=== PATIENT | female | born 1995 | race Caucasian/White ===

== ENCOUNTER 2017-02-24 00:27 | Emergency (ER) | payer OTHER ==
[2017-02-24] MEDS ORDERED: Ondansetron ODT TAB* 4 MG ONE (01:10)
[2017-02-24] MEDS ORDERED: Ondansetron ODT TAB* 4 MG PO ONE (01:11)
[2017-02-24] MEDS ORDERED: Al Hydrox/Mg Hydrox/Simet LIQ* 30 ML UDC PO ONE (01:16)
[2017-02-24] MEDS ORDERED: Lidocaine 2% VISCOUS* 15 ML UDC PO ONE (01:16)
--- NOTE | 2017-02-24 01:29 | ED ---
bar Shore Timothy, scribed for James Souza MD on 02/24/17 at 0117 . Abdominal Pain/Female - HPI Summary HPI Summary: Yanna Ray is a 21 yo female presenting to [facility] with nausea and 8/10 abd pain radiaitng into her mid-back since 2300 02/23/17. She states the pain also rises into her throat, and that it is like acid reflux but worse. She states she has not vomited, but has been dry heaving. Her MHx includes celiac disease, ovarian cysts, UTI's and tonsillectomy. - History of Current Complaint Stated Complaint: NAUSEA Time Seen by Provider: 02/24/17 01:13 Hx Obtained From: Patient Onset/Duration: Sudden Onset, Lasting Hours, Still Present Timing: Constant Severity Initially: Moderate Severity Currently: Moderate Pain Intensity: 8 Pain Scale Used: 0-10 Numeric Location: Epigastric Radiates: No Character: Burning Aggravating Factor(s): Nothing Associated Signs and Symptoms: Positive: Nausea Allergies/Adverse Reactions: Allergies Allergy/AdvReac Type Severity Reaction Status Date / Time Gluten Meal Allergy GI Upset Verified 05/31/15 11:40 Morphine Allergy Rash Verified 05/31/15 11:40 Neomycin Allergy Swelling Verified 05/31/15 11:40 PMH/Surg Hx/FS Hx/Imm Hx - Immunization History Date of Tetanus Vaccine: utd Date of Influenza Vaccine: utd Infectious Disease History: No Infectious Disease History: Denies: Traveled Outside the [place] in Last 30 Days - Family History Known Family History: Positive: Cardiac Disease, Hypertension, Diabetes - Social History Alcohol Use: Rare Hx Substance Use: No Substance Use Type: Reports: None Smoking Status (MU): Never Smoked Tobacco Review of Systems Constitutional: Negative Eyes: Negative ENT: Negative Cardiovascular: Negative Respiratory: Negative Positive: Abdominal Pain, Nausea. Negative: Vomiting Genitourinary: Negative Musculoskeletal: Negative Skin: Negative Neurological: Negative Psychological: Normal All Other Systems Reviewed And Are Negative: Yes Physical Exam Triage Information Reviewed: Yes Vital Signs On Initial Exam: Initial Vitals Temp Pulse Resp BP Pulse Ox 98.3 F 92 12 147/79 100 02/24/17 00:32 02/24/17 00:32 02/24/17 00:32 02/24/17 00:32 02/24/17 00:32 Vital Signs Reviewed: Yes Appearance: Positive: Well-Appearing, No Pain Distress Skin: Positive: Warm Head/Face: Positive: Normal Head/Face Inspection Eyes: Positive: SANDRA ENT: Positive: Hearing grossly normal Neck: Positive: Supple Respiratory/Lung Sounds: Positive: Clear to Auscultation, Breath Sounds Present Abdomen Description: Positive: Nontender, Soft Bowel Sounds: Positive: Present Musculoskeletal: Positive: Strength/ROM Intact Neurological: Positive: Alert, Oriented to Person Place, Time, Normal Gait Psychiatric: Positive: Affect/Mood Appropriate - [place] Coma Scale Coma Scale Total: 15 Diagnostics - Vital Signs Vital Signs Temp Pulse Resp BP Pulse Ox 02/24/17 00:32 98.3 F 92 12 147/79 100 - Laboratory Result Diagrams: 02/24/17 03:20 02/24/17 03:20 Lab Statement: Any lab studies that have been ordered have been reviewed, and results considered in the medical decision making process. Re-Evaluation - Re-Evaluation First Eval Change: Improved Abdominal Pain Fem Course/Dx - Course Course Of Treatment: Yanna Garcia is a 21 yo female presenting to [facility] with 8/10 abd pain rising through her throat "like acid reflux but worse" with nausea and dry-heaving but no vomiting. In the ED she was given Zofran to control her nausea, lidocaine as local anasthetic, and Maalox Plus as an antacid to coat her stomach. After clinical examination and review of her lab work, she will be discharged home with abdominal pain and appropriate instructions. - Diagnoses Provider Diagnoses: Abdominal pain Discharge - Discharge Plan Condition: Stable Disposition: HOME Patient Education Materials: Acute Abdominal Pain (ED), Diet for Ulcers and Gastritis (ED) Referrals: [facility] [Primary Care Provider] - 2 Days Additional Instructions: Please follow up with your primary care physician regarding your visit to the emergency department today. Return to the emergency department with any new or recurring symptoms. The documentation as recorded by the bar graves Timothy accurately reflects the service I personally performed and the decisions made by me, James Souza MD.
[2017-02-24 03:38] LABS: Add Diff/Slide Review? Slide Review Added; Comments Flag Yes; Hematocrit 40 % (35-47); Hemoglobin 13.2 g/dl (12.0-16.0); Mean Corpuscular HGB Conc 33 g/dl (31-36); Mean Corpuscular Hemoglobin 28 pg (27-31); Mean Corpuscular Volume 84 fL (80-97); Mean Platelet Volume 9 um3 (7.4-10.4); Red Blood Count 4.77 10^6/ul (4.0-5.4); Red Cell Distribution Width 13 % (10.5-15); White Blood Count 7.3 10^3/ul (3.5-10.8)
[2017-02-24 03:52] LABS: ALT 11 U/L (7-52); AST 13 U/L (13-39); Albumin 3.6 g/dL (3.2-5.2); Alkaline Phosphatase 69 U/L (34-104); Anion Gap 6 mmol/L (2-11); BUN/Creatinine Ratio 15.8 (8-20); Blood Urea Nitrogen 12 mg/dL (6-24); CO2 Carbon Dioxide 25 mmol/L (22-32); Calcium 9.2 mg/dL (8.6-10.3); Chloride 105 mmol/L (101-111); EGFR African American 122.4 (>60); EGFR Non-African American 95.2 (>60); Globulin 3.2 g/dL (2-4); Glucose 100 mg/dL (70-100); Lipase < 10 U/L (11.0-82.0); Potassium 4.4 mmol/L (3.5-5.0); Sodium 136 mmol/L (133-145); Total Protein 6.8 g/dL (6.4-8.9)
[2017-02-24 04:42] VITALS: BP 113/70
== END 2017-02-24 04:41 | disposition home or self-care (01) ==
LOC: ED 00:27
DX: R10.9 Unspecified abdominal pain (principal); R11.0 Nausea
CPT/HCPCS: 36415; 80053; 83605; 83690; 84702; 85025; 86140; 99283; A9270-GY

== ENCOUNTER 2017-02-24 13:47 | Emergency (ER) | payer OTHER ==
[2017-02-24] MEDS ORDERED: Pantoprazole IV* 40 MG IV ONE (14:55)
[2017-02-24] MEDS ORDERED: Ondansetron INJ* 2 MG/ML VIAL IV ONE (14:55)
[2017-02-24] MEDS ORDERED: NS 0.9% 1000 ML* 1,000 ML IV ONE (14:55)
--- NOTE | 2017-02-24 15:39 | RAD ---
INDICATION: ] Right upper quadrant pain COMPARISON: None TECHNIQUE: Longitudinal and transverse scans of the right upper quadrant were obtained. Doppler interrogation of the hepatic and portal venous system was performed. FINDINGS: Liver: There is hepatomegaly with hepatic steatosis. There are no masses . The liver measures 22.5 cm in cephalocaudal dimension. Vessels: There is normal hepatic and portal venous flow. Bile ducts: There is no evidence of intrahepatic or extrahepatic ductal dilatation. The common duct measures 0.3 cm. Gallbladder: There are small gallbladder polyps. The sonographic appearance of the gallbladder is otherwise normal. There is no evidence of cholelithiasis, thickening of the gallbladder wall, or pericholecystic fluid. Pancreas: The visualized pancreas appears normal Right kidney: The right kidney is normal in size and echogenicity. There are no masses or calculi. There is no evidence of hydronephrosis. The right kidney measures 11.3 x 4.3 x 5.1 cm. IVC and aorta: The aorta and superior vena cava appear normal. Fluid: There is no ascites. Other: None. IMPRESSION: GALLBLADDER POLYPS, OTHERWISE NEGATIVE.
--- NOTE | 2017-02-24 15:43 | RAD ---
Indication: Abdominal pain. Flat and upright views of the abdomen demonstrates no free air. No dilated loops of bowel are noted. No free air is identified. IMPRESSION: No free air or obstruction is noted.
[2017-02-24 16:11] LABS: Urine Bilirubin Negative (Negative); Urine Glucose Negative (Negative); Urine Nitrite Negative (Negative)
[2017-02-24 16:21] LABS: Hematocrit 39 % (35-47); Mean Corpuscular HGB Conc 33 g/dl (31-36); Mean Corpuscular Hemoglobin 28 pg (27-31); Mean Corpuscular Volume 85 fL (80-97); Mean Platelet Volume 9 um3 (7.4-10.4); Red Blood Count 4.62 10^6/ul (4.0-5.4); Red Cell Distribution Width 13 % (10.5-15); White Blood Count 8.5 10^3/ul (3.5-10.8)
[2017-02-24 16:33] LABS: ALT 11 U/L (7-52); Albumin 3.5 g/dL (3.2-5.2); Alkaline Phosphatase 67 U/L (34-104); Amylase 30 U/L (29-103); BUN/Creatinine Ratio 15.1 (8-20); Blood Urea Nitrogen 11 mg/dL (6-24); C Reactive Protein 19.76 mg/L (< 5.00); CO2 Carbon Dioxide 25 mmol/L (22-32); Calcium 9.1 mg/dL (8.6-10.3); Chloride 105 mmol/L (101-111); EGFR African American 128.2 (>60); EGFR Non-African American 99.7 (>60); Globulin 3.4 g/dL (2-4); Glucose 86 mg/dL (70-100); Lipase < 10 U/L (11.0-82.0); Sodium 136 mmol/L (133-145); Total Protein 6.9 g/dL (6.4-8.9)
[2017-02-24 16:36] LABS: AST 21 U/L (13-39); Anion Gap 6 mmol/L (2-11)
--- NOTE | 2017-02-24 17:57 | ED ---
Kraig Shore Alok, scribed for Benito Davidson MD on 02/24/17 at 1541 . GI/ HPI - HPI Summary HPI Summary: 21 y/o female presents to the ED with abdominal pain and nausea since 2300 last night. Pt last visited the ED last night following the pain, staying approximately from [id number], and was treated with a GI cocktail which did not improve symptoms. Pt was sent home and prompted to visit the ED again today after symptoms began to worsen. PMHx includes gastric ulcers and hypothyroid. PSHx includes tonsillectomy and knee surgery. Pt takes Neproxin once every three days. Pt denies tobacco use. - History of Current Complaint Chief Complaint: EDAbdPain Time Seen by Provider: 02/24/17 14:41 Stated Complaint: CHEST PAINS Hx Obtained From: Patient Onset/Duration: Started Hours Ago, Atraumatic, Still Present Timing: Constant Severity: Moderate Current Severity: Moderate Pain Intensity: 6 Location of Pain: RUQ, Epigastric Associated Signs and Symptoms: Positive: Nausea Aggravating Factor(s): Nothing Alleviating Factor(s): Nothing - Allergy/Home Medications Allergies/Adverse Reactions: Allergies Allergy/AdvReac Type Severity Reaction Status Date / Time Gluten Meal Allergy GI Upset Verified 05/31/15 11:40 Morphine Allergy Rash Verified 05/31/15 11:40 Neomycin Allergy Swelling Verified 05/31/15 11:40 PMH/Surg Hx/FS Hx/Imm Hx Endocrine/Hematology History: Reports: Hx Thyroid Disease GI History: Reports: Hx Ulcer - Surgical History Surgery Procedure, Year, and Place: Tonsillectomy - Immunization History Date of Tetanus Vaccine: utd Date of Influenza Vaccine: utd Infectious Disease History: No Infectious Disease History: Denies: Traveled Outside the [place] in Last 30 Days - Family History Known Family History: Positive: Cardiac Disease, Hypertension, Diabetes - Social History Occupation: Student Alcohol Use: Rare Hx Substance Use: No Substance Use Type: Reports: None Smoking Status (MU): Never Smoked Tobacco Review of Systems Negative: Fever Positive: Abdominal Pain, Nausea All Other Systems Reviewed And Are Negative: Yes Physical Exam - Summary Physical Exam Summary: VITAL SIGNS: Reviewed. GENERAL: ~Patient is a well developed and nourished female who is lying comfortable in the stretcher. ~Patient is not in any acute respiratory distress. HEAD AND FACE: Normocephalic EYES: PERRLA, EOMI x 2. EARS: Hearing grossly intact. MOUTH: Oropharynx within normal limits. NECK: Supple, trachea is midline, no adenopathy, no JVD, no carotid bruit. CHEST: Symmetric, no tenderness at palpation LUNGS: Clear to auscultation bilaterally. No wheezing or crackles. CVS: Regular rate and rhythm, S1 and S2 present, no murmurs or gallops appreciated. ABDOMEN: Epigastric and RUQ tenderness. EXTREMITIES: Full ROM in all major joints, no edema, no cyanosis or clubbing. NEURO: Alert and oriented x 3. No acute neurological deficits. Speech is normal and follows commands. SKIN: Dry and warm Triage Information Reviewed: Yes Vital Signs On Initial Exam: Initial Vitals Temp Pulse Resp BP Pulse Ox 98.0 F 75 16 166/66 100 02/24/17 13:50 02/24/17 13:50 02/24/17 13:50 02/24/17 13:50 02/24/17 13:50 Vital Signs Reviewed: Yes Diagnostics - Vital Signs Vital Signs Temp Pulse Resp BP Pulse Ox 02/24/17 14:54 98 F 75 16 166/66 100 02/24/17 13:50 98.0 F 75 16 166/66 100 - Laboratory Lab Results: Lab Results 02/24/17 02/24/17 02/24/17 Range/Units 15:50 15:50 15:50 WBC 8.5 (3.5-10.8) 10^3/ul RBC 4.62 (4.0-5.4) 10^6/ul Hgb 13.0 (12.0-16.0) g/dl Hct 39 (35-47) % MCV 85 (80-97) fL MCH 28 (27-31) pg MCHC 33 (31-36) g/dl RDW 13 (10.5-15) % Plt Count 288 (150-450) 10^3/ul MPV 9 (7.4-10.4) um3 Neut % (Auto) 54.9 (38-83) % Lymph % (Auto) 35.9 (25-47) % [place] % (Auto) 7.7 (1-9) % Eos % (Auto) 0.9 (0-6) % Baso % (Auto) 0.6 (0-2) % Absolute Neuts (auto) 4.7 (1.5-7.7) 10^3/ul Absolute Lymphs (auto) 3.1 (1.0-4.8) 10^3/ul Absolute Monos (auto) 0.7 (0-0.8) 10^3/ul Absolute Eos (auto) 0.1 (0-0.6) 10^3/ul Absolute Basos (auto) 0.1 (0-0.2) 10^3/ul Absolute Nucleated RBC 0 10^3/ul Nucleated RBC % 0 Sodium 136 (133-145) mmol/L Potassium 5.0 (3.5-5.0) mmol/L Chloride 105 (101-111) mmol/L Carbon Dioxide 25 (22-32) mmol/L Anion Gap 6 (2-11) mmol/L BUN 11 (6-24) mg/dL Creatinine 0.73 (0.51-0.95) mg/dL Est GFR ( Amer) 128.2 (>60) Est GFR (Non-Af Amer) 99.7 (>60) BUN/Creatinine Ratio 15.1 (8-20) Glucose 86 (70-100) mg/dL Lactic Acid (0.5-2.0) mmol/L Calcium 9.1 (8.6-10.3) mg/dL Magnesium 2.0 (1.9-2.7) mg/dL Total Bilirubin 0.30 (0.2-1.0) mg/dL AST 21 (13-39) U/L ALT 11 (7-52) U/L Alkaline Phosphatase 67 (34-104) U/L C-Reactive Protein 19.76 H (< 5.00) mg/L Total Protein 6.9 (6.4-8.9) g/dL Albumin 3.5 (3.2-5.2) g/dL Globulin 3.4 (2-4) g/dL Albumin/Globulin Ratio 1.0 (1-3) Amylase 30 (29-103) U/L Lipase < 10 L (11.0-82.0) U/L Beta HCG, Quant < 0.60 mIU/mL Urine Color Yellow Urine Appearance Clear Urine pH 7.0 (5-9) Ur Specific [place] 1.023 (1.010-1.030) Urine Protein Negative (Negative) Urine Ketones Negative (Negative) Urine Blood Negative (Negative) Urine Nitrate Negative (Negative) Urine Bilirubin Negative (Negative) Urine Urobilinogen Negative (Negative) Ur Leukocyte Esterase Negative (Negative) Urine Glucose Negative (Negative) Urine Ascorbic Acid * H (Negative) 02/24/17 Range/Units 15:50 WBC (3.5-10.8) 10^3/ul RBC (4.0-5.4) 10^6/ul Hgb (12.0-16.0) g/dl Hct (35-47) % MCV (80-97) fL MCH (27-31) pg MCHC (31-36) g/dl RDW (10.5-15) % Plt Count (150-450) 10^3/ul MPV (7.4-10.4) um3 Neut % (Auto) (38-83) % Lymph % (Auto) (25-47) % [place] % (Auto) (1-9) % Eos % (Auto) (0-6) % Baso % (Auto) (0-2) % Absolute Neuts (auto) (1.5-7.7) 10^3/ul Absolute Lymphs (auto) (1.0-4.8) 10^3/ul Absolute Monos (auto) (0-0.8) 10^3/ul Absolute Eos (auto) (0-0.6) 10^3/ul Absolute Basos (auto) (0-0.2) 10^3/ul Absolute Nucleated RBC 10^3/ul Nucleated RBC % Sodium (133-145) mmol/L Potassium (3.5-5.0) mmol/L Chloride (101-111) mmol/L Carbon Dioxide (22-32) mmol/L Anion Gap (2-11) mmol/L BUN (6-24) mg/dL Creatinine (0.51-0.95) mg/dL Est GFR ( Amer) (>60) Est GFR (Non-Af Amer) (>60) BUN/Creatinine Ratio (8-20) Glucose (70-100) mg/dL Lactic Acid 0.9 (0.5-2.0) mmol/L Calcium (8.6-10.3) mg/dL Magnesium (1.9-2.7) mg/dL Total Bilirubin (0.2-1.0) mg/dL AST (13-39) U/L ALT (7-52) U/L Alkaline Phosphatase (34-104) U/L C-Reactive Protein (< 5.00) mg/L Total Protein (6.4-8.9) g/dL Albumin (3.2-5.2) g/dL Globulin (2-4) g/dL Albumin/Globulin Ratio (1-3) Amylase (29-103) U/L Lipase (11.0-82.0) U/L Beta HCG, Quant mIU/mL Urine Color Urine Appearance Urine pH (5-9) Ur Specific [place] (1.010-1.030) Urine Protein (Negative) Urine Ketones (Negative) Urine Blood (Negative) Urine Nitrate (Negative) Urine Bilirubin (Negative) Urine Urobilinogen (Negative) Ur Leukocyte Esterase (Negative) Urine Glucose (Negative) Urine Ascorbic Acid (Negative) Result Diagrams: 02/24/17 15:50 02/24/17 15:50 Lab Statement: Any lab studies that have been ordered have been reviewed, and results considered in the medical decision making process. - Radiology Abd XRAY Xray Interpretation: Positive (See Comments) - IMPRESSION: NO FREE AIR OBSTRUCTION IS NOTED. Radiology Interpretation Completed By: Radiologist - Additional Comments Diagnostic Additional Comments: Gallbladder US - IMPRESSION: GALLBLADDER POLYPS, OTHERWISE NEGATIVE. Re-Evaluation - Re-Evaluation First Eval Re-Evaluation Time: 17:47 GIGU Course/Dx - Course Course Of Treatment: 21 y/o female presents to the ED with abdominal pain and nausea since 2300 last night. Pt last visited the ED last night following the pain, staying approximately from [id number], and was treated with a GI cocktail which did not improve symptoms. Pt was sent home and prompted to visit the ED again today after symptoms began to worsen. PMHx includes gastric ulcers and hypothyroid. PSHx includes tonsillectomy and knee surgery. Pt takes Neproxin once every three days. Pt denies tobacco use. Assessment/Plan: Blood work wnl except for increase CRP 19.7. UA is negative for UTI. GB U/S impression: GB polyps otherwise negative. In the ED course she was given IVF, ZOfran for nausea and vomiting and Protonix for her epigastric pain. She has Hx of PUD. She has been scheduled for an upper endoscopy. After medications all her symptoms have improved. At this point she has no pain and she was able to tolerate PO. She has no nausea or abdominal pain. I did not perform an Abdominal and pelvic CT since patient is asymptomatic. I believe patient symptoms may be due to gastritis vs GERD vs PUD. I discussed all the findings and test results with the patient. Patient was instructed to return to the emergency room immediately if any of the symptoms return or worsens. They were explained the possibility of an early abdominal pathology which was not detected at this time despite the physical exam and testing. They understand and agree. Abdominal exam before discharge: Soft, NT. No signs of distention. BS present. No rebound no guarding, and no masses palpated. Patient is alert and oriented and hemodynamically stable. Patient is to follow up with primary care physician in the next 2 to 3 days. Patient agree and understands. - Diagnoses Differential Diagnoses - Female: Cholelithiasis, Cholecystitis, Constipation, Colitis, Gastritis, Gastroenteritis (Viral), Gerd, Vomiting Provider Diagnoses: Epigastric abdominal pain Discharge - Discharge Plan Condition: Stable Disposition: HOME Prescriptions: Pantoprazole TAB (NF) [Protonix TAB (NF)] 20 mg PO DAILY #20 tab Patient Education Materials: Epigastric Pain (ED) Referrals: [facility] [Primary Care Provider] - The documentation as recorded by the Kraig graves Alok accurately reflects the service I personally performed and the decisions made by me, Benito Davidson MD.
[2017-02-24 18:13] VITALS: BP 106/80
== END 2017-02-24 18:11 | disposition home or self-care (01) ==
LOC: ED 13:47
DX: R10.13 Epigastric pain (principal); R10.11 Right upper quadrant pain; R11.0 Nausea; Z87.11 Personal history of peptic ulcer disease; Z86.39 Personal history of other endocrine, nutritional and metabolic disease
CPT/HCPCS: 36415; 74020; 76705; 80053; 81003; 82150; 83605; 83690; 83735; 84702; 85025; 86140; 96374; 96375; 99283; J2405